=== PATIENT | male | born 1940 | race African-American/Black ===

== ENCOUNTER 2022-04-01 18:51 | Inpatient (IN) | payer MEDICARE, OTHER ==
[~2022-04-01] VITALS: Ht 172.7 cm; Wt 56.2 kg
[2022-04-01 21:16] LABS: BASOPHILS % 0.2 % (0.0-2.0); EOSINOPHILS % 0.4 % (0.0-5.0); HEMATOCRIT. 42.8 % (42.0-52.0); HEMOGLOBIN. 13.9 g/dL (14.0-18.0); LYMPHOCYTES % 13.1 % (20.0-50.0); MEAN CORPUSCULAR HEMOGLOBIN 25.7 pg (28.0-32.0); MEAN CORPUSCULAR VOLUME 79.4 fL (80.0-94.0); MONOCYTES % 8.7 % (2.0-8.0); NEUTROPHILS % 77.6 % (40.0-76.0); PLATELET 246 x1000/uL (130-400); RED BLOOD CELL COUNT 5.39 mill/uL (4.7-6.1)
[2022-04-01 21:24] LABS: CHLORIDE 97 mEq/L (98-107)
[2022-04-01] MEDS ORDERED: SODIUM CHL 0.45% + KCL 20MEQ/L 1,000 ML IV SCH (22:45)
[2022-04-02 05:00] VITALS: BP 155/70
[2022-04-02 08:00] VITALS: BP 163/82
[2022-04-02] MEDS ORDERED: LISINOPRIL 5MG TABLET PO SCH (09:00)
[2022-04-02] MEDS ORDERED: ACETAMINOPHEN 325MG TABLET PO PRN (11:15)
[2022-04-02 12:00] VITALS: BP 145/66
[2022-04-02] MEDS: SODIUM CHLORIDE 0.9% 1,000 ML IV SCH (12:31)
[2022-04-02 16:00] VITALS: BP 141/69
[2022-04-02] MEDS: LISINOPRIL 20MG TABLET PO SCH (17:56)
[2022-04-02 20:00] VITALS: BP 100/54
[2022-04-02] MEDS ORDERED: IOHEXOL-300 100 ML BOTTLE ONE (21:17)
[2022-04-02] MEDS: HYDROCODONE/ACETAMINOPHEN 5/325MG TABLET PO PRN (22:07)
[2022-04-03] VITALS: BP 139/62
[2022-04-03 01:46] LABS: CLARITY URINE CLEAR (CLEAR); COLOR URINE YELLOW (YELLOW); KETONES URINE NEGATIVE (NEGATIVE); LEUKOCYTE ESTERASE URINE NEGATIVE (NEGATIVE); NITRITE URINE NEGATIVE (NEGATIVE); OCCULT BLOOD URINE TRACE (NEGATIVE); PH URINE 6.5 (4.5-8.0); PROTEIN URINE NEGATIVE (NEGATIVE); SPECIFIC GRAVITY URINE 1.075 (1.005-1.030)
[2022-04-03 04:00] VITALS: BP 137/64
[2022-04-03] MEDS: SODIUM CHLORIDE 0.9% 1,000 ML IV SCH ×2 (06:24→13:55)
[2022-04-03 08:00] VITALS: BP 153/74
[2022-04-03] MEDS: LISINOPRIL 20MG TABLET PO SCH ×2 (09:59→17:16)
[2022-04-03] MEDS: ONDANSETRON HCL 4MG/2ML INJ IV PRN ×2 (10:10→18:45)
[2022-04-03 12:00] VITALS: BP 152/77
[2022-04-03] MEDS ORDERED: METOCLOPRAMIDE HCL 10MG/2ML VIAL IV PRN (13:15)
[2022-04-03 16:00] VITALS: BP 150/71
[2022-04-03 16:26] LABS: TOTAL IRON BINDING CAPACITY 270 ug/dL (250-450)
[2022-04-03 16:35] LABS: FERRITIN 210 ng/mL (22-322)
[2022-04-03 16:48] LABS: HEPATITIS B SURFACE ANTIGEN NEGATIVE
[2022-04-03 17:01] LABS: VITAMIN B12 SERUM > 2000.0 pg/mL (211-911)
[2022-04-03] MEDS: PANTOPRAZOLE SODIUM 40 MG/VIAL IV SCH (17:15)
[2022-04-03] MEDS: HYDROCODONE/ACETAMINOPHEN 5/325MG TABLET PO PRN (17:16)
[2022-04-03] MEDS ORDERED: TERA10CA4 PO (18:29)
[2022-04-03 20:00] VITALS: BP 142/60
[2022-04-03] MEDS: TERAZOSIN HCL 5MG CAPSULE PO SCH (21:00)
[2022-04-04] VITALS: BP 133/60
[2022-04-04] MEDS: SODIUM CHLORIDE 0.9% 1,000 ML IV SCH ×2 (03:15→16:35)
[2022-04-04 04:00] VITALS: BP 125/58
[2022-04-04 06:11] LABS: BASOPHILS % 0.3 % (0.0-2.0); EOSINOPHILS % 0.7 % (0.0-5.0); HEMATOCRIT. 32.3 % (42.0-52.0); HEMOGLOBIN. 10.6 g/dL (14.0-18.0); LYMPHOCYTES % 14.7 % (20.0-50.0); MEAN CORPUSCULAR HEMOGLOBIN 25.8 pg (28.0-32.0); MEAN CORPUSCULAR VOLUME 78.8 fL (80.0-94.0); MEAN PLATELET VOLUME 7.7 fl (7.4-10.4); MONOCYTES % 7.2 % (2.0-8.0); NEUTROPHILS % 77.1 % (40.0-76.0); PLATELET 252 x1000/uL (130-400); RED CELL DISTRIBUTION WIDTH 14.9 % (11.6-14.6)
[2022-04-04 06:26] LABS: INR 1.1; PROTHROMBIN TIME 11.9 sec (9.6-11.0)
[2022-04-04 06:28] LABS: CHLORIDE 105 mEq/L (98-107)
[2022-04-04 08:00] VITALS: BP 143/63
[2022-04-04] MEDS: ONDANSETRON HCL 4MG/2ML INJ IV PRN ×3 (09:29→18:08)
[2022-04-04] MEDS: LISINOPRIL 20MG TABLET PO SCH ×2 (09:31→18:08)
[2022-04-04] MEDS: PANTOPRAZOLE SODIUM 40 MG/VIAL IV SCH ×2 (09:32→21:55)
[2022-04-04 12:00] VITALS: BP 135/63
[2022-04-04] MEDS ORDERED: NALOXONE HCL 0.4MG/ML VIAL IV PRN (15:00)
[2022-04-04 16:00] VITALS: BP 135/62
[2022-04-04 20:00] VITALS: BP 147/66
[2022-04-04] MEDS: TERAZOSIN HCL 5MG CAPSULE PO SCH (22:00)
[2022-04-05] VITALS: BP 127/70
[2022-04-05 04:00] VITALS: BP 145/63
[2022-04-05] MEDS: SODIUM CHLORIDE 0.9% 1,000 ML IV SCH ×2 (05:17→17:21)
[2022-04-05 07:24] LABS: INR 1.1; PROTHROMBIN TIME 11.8 sec (9.6-11.0)
[2022-04-05 07:30] LABS: BASOPHILS % 0.4 % (0.0-2.0); EOSINOPHILS % 1.3 % (0.0-5.0); HEMATOCRIT. 28.3 % (42.0-52.0); HEMOGLOBIN. 9.6 g/dL (14.0-18.0); LYMPHOCYTES % 12.9 % (20.0-50.0); MEAN CORPUSCULAR HEMOGLOBIN 26.4 pg (28.0-32.0); MEAN CORPUSCULAR VOLUME 77.9 fL (80.0-94.0); MEAN PLATELET VOLUME 7.6 fl (7.4-10.4); NEUTROPHILS % 76.4 % (40.0-76.0); PLATELET 258 x1000/uL (130-400); RED BLOOD CELL COUNT 3.63 mill/uL (4.7-6.1); RED CELL DISTRIBUTION WIDTH 14.6 % (11.6-14.6)
[2022-04-05 08:00] VITALS: BP 130/53
[2022-04-05 08:21] LABS: CHLORIDE 106 mEq/L (98-107)
[2022-04-05] MEDS: LISINOPRIL 20MG TABLET PO SCH ×2 (09:00→17:19)
[2022-04-05] MEDS: PANTOPRAZOLE SODIUM 40 MG/VIAL IV SCH ×2 (09:00→21:05)
[2022-04-05 12:00] VITALS: BP 157/59
[2022-04-05] MEDS ORDERED: PROPOFOL 200MG/20ML VIAL IV ONE (12:14)
[2022-04-05] MEDS ORDERED: LIDOCAINE HCL 1% 20ML VIAL (Pyxis) INJ ONE (12:14)
[2022-04-05] MEDS ORDERED: ONDANSETRON HCL 4MG/2ML INJ IV PRN (13:15)
[2022-04-05] MEDS ORDERED: MEPERIDINE HCL/PF 25MG/ML CPJ IV PRN (13:15)
[2022-04-05] MEDS ORDERED: LABETALOL 5MG/ML SYR 20 MG/4 ML SYRINGE IV PRN (13:15)
[2022-04-05] MEDS ORDERED: HYDROMORPHONE HCL/PF 2MG/ML CPJ IV PRN (13:15)
[2022-04-05] MEDS ORDERED: LACTULOSE 20G/30ML UDC PO NR (15:00)
[2022-04-05 15:44] VITALS: BP 135/44
[2022-04-05] MEDS: SUCRALFATE 1G TABLET PO SCH ×2 (17:20→21:05)
[2022-04-05] MEDS ORDERED: SUCR1TAB30 PO (17:42)
[2022-04-05] MEDS ORDERED: OMEP40CA20 MT (17:42)
[2022-04-05 20:00] VITALS: BP 138/79
[2022-04-05] MEDS: TERAZOSIN HCL 5MG CAPSULE PO SCH (21:05)
[2022-04-06] VITALS (7 sets, daily range): BP systolic 120–167; BP diastolic 39–100
[2022-04-06] MEDS: SUCRALFATE 1G TABLET PO SCH ×3 (06:56→18:40)
[2022-04-06 08:13] LABS: BASOPHILS % 0.5 % (0.0-2.0); EOSINOPHILS % 1.5 % (0.0-5.0); HEMATOCRIT. 29.9 % (42.0-52.0); HEMOGLOBIN. 9.7 g/dL (14.0-18.0); LYMPHOCYTES % 16.1 % (20.0-50.0); MEAN CORPUSCULAR HEMOGLOBIN 25.7 pg (28.0-32.0); MEAN CORPUSCULAR VOLUME 79.1 fL (80.0-94.0); MEAN PLATELET VOLUME 8.1 fl (7.4-10.4); MONOCYTES % 8.3 % (2.0-8.0); NEUTROPHILS % 73.6 % (40.0-76.0); PLATELET 280 x1000/uL (130-400); RED BLOOD CELL COUNT 3.77 mill/uL (4.7-6.1); RED CELL DISTRIBUTION WIDTH 14.8 % (11.6-14.6)
[2022-04-06 08:19] LABS: CHLORIDE 106 mEq/L (98-107)
[2022-04-06] MEDS: SODIUM CHLORIDE 0.9% 1,000 ML IV SCH (08:35)
[2022-04-06] MEDS: PANTOPRAZOLE SODIUM 40 MG/VIAL IV SCH (09:00)
[2022-04-06] MEDS: LISINOPRIL 20MG TABLET PO SCH ×2 (10:13→18:40)
[2022-04-06] MEDS ORDERED: SUCR1TAB MT (12:23)
[2022-04-06] MEDS ORDERED: OMEP40CA20 MT (12:23)
== END 2022-04-06 20:50 | disposition home or self-care (01) | DRG 381 ==
LOC: ER 18:51 → 6EST 04-02 01:25 → ENRESERV 04-02 02:36
PROVIDERS: ADMIT Internal Medicine; ATTEND Internal Medicine
PROC: 0DB68ZX Excision of Stomach, Via Natural or Artificial Opening Endoscopic, Diagnostic (ICD-10-PCS; principal; 2022-04-05)
PROC: 0DB78ZX Excision of Stomach, Pylorus, Via Natural or Artificial Opening Endoscopic, Diagnostic (ICD-10-PCS; 2022-04-05)
DX: K22.11 Ulcer of esophagus with bleeding (principal); E44.1 Mild protein-calorie malnutrition; E87.1 Hypo-osmolality and hyponatremia; I31.3 Pericardial effusion (noninflammatory); Z68.1 Body mass index [BMI] 19.9 or less, adult; J90 Pleural effusion, not elsewhere classified; K29.71 Gastritis, unspecified, with bleeding; E86.0 Dehydration; K25.9 Gastric ulcer, unspecified as acute or chronic, without hemorrhage or perforation; E87.8 Other disorders of electrolyte and fluid balance, not elsewhere classified; D50.9 Iron deficiency anemia, unspecified; N40.0 Benign prostatic hyperplasia without lower urinary tract symptoms; B19.20 Unspecified viral hepatitis C without hepatic coma; R26.9 Unspecified abnormalities of gait and mobility; R53.81 Other malaise; Z20.822 Contact with and (suspected) exposure to COVID-19; R74.01 Elevation of levels of liver transaminase levels; C61 Malignant neoplasm of prostate; I10 Essential (primary) hypertension; I25.10 Atherosclerotic heart disease of native coronary artery without angina pectoris; Z87.891 Personal history of nicotine dependence
CPT/HCPCS: 36415; 71045; 71260; 74177; 76700; 80048; 80053; 80076; 81003; 82105; 82378; 82607; 82728; 82746; 83540; 83550; 85025; 85044; 86301; 86705; 86709; 86803; 86850; 86900; 87340; 87426; 88305; 88312; 88313; 93005; 97162; 99285; C9113; C9803; J2405; J2704; J3480; J3490; J7030; Q9967

== ENCOUNTER 2025-06-05 23:17 | Emergency (ER) | payer OTHER, MEDICAID ==
[~2025-06-05] VITALS: Ht 175.3 cm; Wt 50.0 kg
[~2025-06-05 23:17] MED LIST: OMEP40CA20 MT; SUCR1TAB MT; SUCR1TAB30 PO; TERA10CA4 PO
[2025-06-05 23:22] VITALS: O2SAT 96
[2025-06-05] MEDS ORDERED: SODIUM CHLORIDE 0.9% 1,000 ML IV ONE (23:30)
[2025-06-06 00:03] VITALS: BP 113/68; PULSE 80; RESP 17; TEMP 36.9; O2SAT 100
== END 2025-06-06 00:25 | disposition left against medical advice (07) ==
LOC: ER 23:17
DX: R53.1 Weakness (principal); R42 Dizziness and giddiness; I10 Essential (primary) hypertension; Z79.899 Other long term (current) drug therapy
CPT/HCPCS: 71045; 93005; 99283; J7030